=== PATIENT | female | born 1950 | race African-American/Black ===

== ENCOUNTER 2022-04-22 19:37 | Inpatient (IN) | payer MEDICARE, MEDICAID ==
[~2022-04-22] VITALS: Ht 170.2 cm; Wt 70.8 kg
[2022-04-22] MEDS ORDERED: ASPIRIN 81MG TABLET PO ONE (20:15)
[2022-04-22] MEDS ORDERED: ADENOSINE 3 MG/ML 2ML VIAL IV ONE ×3 (20:15→20:30)
[2022-04-22] MEDS ORDERED: NITROGLYCERIN 0.4MG TABLET SL SL PRN (20:15)
[2022-04-22] MEDS ORDERED: METOPROLOL TARTRATE 25MG TABLET PO ONE (21:15)
[2022-04-22 21:16] LABS: BASOPHILS % 0.6 % (0.0-2.0); EOSINOPHILS % 0.3 % (0.0-5.0); HEMATOCRIT. 37.7 % (36.0-48.0); HEMOGLOBIN. 12.7 g/dL (12.0-16.0); MEAN CORPUSCULAR HEMOGLOBIN 32.5 pg (28.0-32.0); MEAN CORPUSCULAR VOLUME 96.4 fL (81.0-99.0); MEAN PLATELET VOLUME 7.4 fl (7.4-10.4); MONOCYTES % 6.5 % (2.0-8.0); NEUTROPHILS % 48.6 % (40.0-76.0); PLATELET 392 x1000/uL (130-400); RED CELL DISTRIBUTION WIDTH 13.2 % (11.6-14.6)
[2022-04-22 21:26] LABS: CHLORIDE 109 mEq/L (98-107)
[2022-04-22 21:42] LABS: ETHANOL BLOOD < 10 mg/dL
[2022-04-22] MEDS ORDERED: MORPHINE SULFATE 2 MG/ML CPJ (NOT FOR IM USE) IV ONE (23:00)
[2022-04-22 23:12] LABS: D-DIMER 1.26 mg/L FEU (<0.50); PARTIAL THROMBOPLASTIN TIME 27.8 sec (23.4-31.0); PROTHROMBIN TIME 10.9 sec (9.6-11.0)
[2022-04-22] MEDS ORDERED: ENOXAPARIN 80MG/0.8ML SYR SUBCUT ONE (23:15)
[2022-04-23] MEDS ORDERED: DOCUSATE SODIUM 100MG CAPSULE PO PRN (00:15)
[2022-04-23] MEDS ORDERED: CLONIDINE 0.1MG TABLET PO PRN (00:15)
[2022-04-23] MEDS ORDERED: MAGNESIUM/ALUMINUM HYDROXIDE/SIMETHICONE 30ML UDC PO PRN (00:15)
[2022-04-23] MEDS ORDERED: ONDANSETRON HCL 4MG/2ML INJ IV PRN (00:15)
[2022-04-23] MEDS ORDERED: IBUPROFEN 200MG TABLET PO PRN (00:15)
[2022-04-23] MEDS ORDERED: ACETAMINOPHEN 325MG TABLET PO PRN (00:15)
[2022-04-23] MEDS ORDERED: IPRATROPIUM/ALBUTEROL 0.5-3(2.5)MG/3ML NEB NEB PRN (00:15)
[2022-04-23] MEDS ORDERED: ALBUTEROL (0.083%) 2.5MG/3ML NEB HHN PRN (00:30)
[2022-04-23] MEDS ORDERED: IPRATROPIUM BROMIDE (0.02%) 0.5MG/2.5ML NEB HHN PRN (00:30)
[2022-04-23] MEDS ORDERED: NITROGLYCERIN 0.4MG TABLET SL SL PRN (01:45)
[2022-04-23] MEDS ORDERED: ENOXAPARIN 60MG/0.6ML SYR SUBCUT NR (02:45)
[2022-04-23 03:10] LABS: GAMMA GLUTAMYL TRANSPEPTIDASE 36 IU/L (7-32)
[2022-04-23 05:18] LABS: EOSINOPHILS % 1.2 % (0.0-5.0); HEMATOCRIT. 35.9 % (36.0-48.0); HEMOGLOBIN. 12.2 g/dL (12.0-16.0); LYMPHOCYTES % 45.3 % (20.0-50.0); MEAN CORPUSCULAR HEMOGLOBIN 32.6 pg (28.0-32.0); MEAN CORPUSCULAR VOLUME 96.1 fL (81.0-99.0); MEAN PLATELET VOLUME 7.1 fl (7.4-10.4); MONOCYTES % 8.1 % (2.0-8.0); NEUTROPHILS % 44.4 % (40.0-76.0); PLATELET 358 x1000/uL (130-400); RED BLOOD CELL COUNT 3.74 mill/uL (4.2-5.4); RED CELL DISTRIBUTION WIDTH 13.2 % (11.6-14.6)
[2022-04-23 05:24] LABS: CHLORIDE 111 mEq/L (98-107)
[2022-04-23 05:34] LABS: HDL CHOLESTEROL 72 mg/dL (40-59); LDL CHOLESTEROL 115 mg/dL (5-100); PHOSPHORUS 3.1 mg/dL (2.5-4.9); TOTAL IRON BINDING CAPACITY 263 ug/dL (250-450)
[2022-04-23 05:50] LABS: CREATINE KINASE MB FRACTION 1.9 ng/mL (0.5-3.6)
[2022-04-23 06:31] LABS: FOLIC ACID (FOLATE) SERUM 7.1 ng/mL (>5.38)
[2022-04-23] MEDS: ACETAMINOPHEN 325MG TABLET PO PRN (06:41)
[2022-04-23 08:40] VITALS: BP 151/78
[2022-04-23] MEDS: ASPIRIN 81MG EC TABLET PO SCH (09:00)
[2022-04-23] MEDS: FAMOTIDINE 20MG TABLET PO SCH ×2 (10:07→21:08)
[2022-04-23] MEDS: METOPROLOL TARTRATE 25MG TABLET PO SCH ×2 (10:08→21:08)
[2022-04-23] MEDS ORDERED: POTASSIUM CHLORIDE 20MEQ TABLET SR PO NR (10:45)
[2022-04-23 12:04] VITALS: BP 139/81
[2022-04-23 15:47] VITALS: BP 120/73
[2022-04-23 16:24] LABS: CREATINE KINASE MB FRACTION 2.4 ng/mL (0.5-3.6)
[2022-04-23 16:36] LABS: HEPATITIS B SURFACE ANTIGEN NEGATIVE
[2022-04-23] MEDS ORDERED: SUVO20TA MT (19:36)
[2022-04-23 20:00] VITALS: BP 147/84
[2022-04-23] MEDS: ZOLPIDEM TARTRATE 5MG TABLET PO PRN (21:18)
[2022-04-24] VITALS: BP 152/88
[2022-04-24 04:00] VITALS: BP 153/86
[2022-04-24] MEDS: ACETAMINOPHEN 325MG TABLET PO PRN (04:40)
[2022-04-24 05:29] LABS: *AMPHETAMINES SCREEN URINE NEGATIVE (NEGATIVE); *BARBITURATES SCREEN URINE NEGATIVE (NEGATIVE); *BENZODIAZEPINES SCREEN URINE NEGATIVE (NEGATIVE); *COCAINE SCREEN URINE NEGATIVE (NEGATIVE); CANNABINOID URINE SCREEN NEGATIVE (NEGATIVE); METHADONE URINE SCREEN NEGATIVE (NEGATIVE); OPIATES URINE SCREEN NEGATIVE (NEGATIVE); PHENCYCLIDINE URINE SCREEN NEGATIVE (NEGATIVE)
[2022-04-24 08:00] VITALS: BP 145/78
[2022-04-24 08:55] LABS: BASOPHILS % 0.7 % (0.0-2.0); EOSINOPHILS % 2.2 % (0.0-5.0); HEMOGLOBIN. 12.9 g/dL (12.0-16.0); LYMPHOCYTES % 44.7 % (20.0-50.0); MEAN CORPUSCULAR HEMOGLOBIN 33.5 pg (28.0-32.0); MEAN CORPUSCULAR VOLUME 95.9 fL (81.0-99.0); MONOCYTES % 8.9 % (2.0-8.0); NEUTROPHILS % 43.5 % (40.0-76.0); PLATELET 344 x1000/uL (130-400); RED BLOOD CELL COUNT 3.85 mill/uL (4.2-5.4); RED CELL DISTRIBUTION WIDTH 12.8 % (11.6-14.6)
[2022-04-24 09:06] LABS: CHLORIDE 106 mEq/L (98-107)
[2022-04-24] MEDS: ASPIRIN 81MG EC TABLET PO SCH (09:54)
[2022-04-24] MEDS: ENOXAPARIN 40MG/0.4ML SYR SUBCUT SCH (09:54)
[2022-04-24] MEDS: METOPROLOL TARTRATE 25MG TABLET PO SCH ×2 (09:57→20:25)
[2022-04-24] MEDS: FAMOTIDINE 20MG TABLET PO SCH ×2 (09:58→20:26)
[2022-04-24 12:00] VITALS: BP 151/74
[2022-04-24 13:06] LABS: ANTI-NUCLEAR ANTIBODIES DIRECT Negative (Negative)
[2022-04-24 16:00] VITALS: BP 122/77
[2022-04-24 20:00] VITALS: BP 147/81
[2022-04-24] MEDS: ZOLPIDEM TARTRATE 5MG TABLET PO PRN (20:26)
[2022-04-25] VITALS: BP 131/99
[2022-04-25 04:00] VITALS: BP 147/75
[2022-04-25 08:00] VITALS: BP 128/63
[2022-04-25] MEDS: METOPROLOL TARTRATE 25MG TABLET PO SCH (08:12)
[2022-04-25] MEDS: ENOXAPARIN 40MG/0.4ML SYR SUBCUT SCH (08:12)
[2022-04-25] MEDS: ASPIRIN 81MG EC TABLET PO SCH (08:12)
[2022-04-25] MEDS: FAMOTIDINE 20MG TABLET PO SCH (08:12)
[2022-04-25 10:21] VITALS: BP 128/63
== END 2022-04-25 11:00 | disposition home or self-care (01) | DRG 310 ==
LOC: ER 19:37 → MICUSO 23:04 → 7WST 04-23 08:55
PROVIDERS: ADMIT Hospitalist; ATTEND Hospitalist
DX: I47.1 Supraventricular tachycardia (principal); E87.6 Hypokalemia; I10 Essential (primary) hypertension; G43.909 Migraine, unspecified, not intractable, without status migrainosus; D64.9 Anemia, unspecified; Z20.822 Contact with and (suspected) exposure to COVID-19; I49.3 Ventricular premature depolarization; R73.9 Hyperglycemia, unspecified; E78.5 Hyperlipidemia, unspecified; Z87.891 Personal history of nicotine dependence
CPT/HCPCS: 36415; 71045; 78582; 80048; 80053; 80061; 80305; 80320; 82550; 82553; 82607; 82728; 82746; 82977; 83036; 83540; 83550; 83735; 83880; 84100; 84439; 84443; 84484; 85025; 85379; 85651; 86038; 86431; 86803; 87340; 87426; 93005; 93306; 93970; 99291; A9558; J0153; J1650; J2270; G0480